=== PATIENT | male | born 2005 | race Caucasian/White ===

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

== ENCOUNTER 2024-01-10 18:49 | Emergency (ER) | payer MEDICAID ==
[~2024-01-10] VITALS: Ht 172.7 cm; Wt 72.7 kg
[~2024-01-10 18:49] MED LIST changes: +BACTRIM DS 8001 TAB PO; +CEPHALEXIN500 M1 PO
[2024-01-10 18:53] VITALS: TEMP 98.5
[2024-01-10] MEDS ORDERED: Tdap Vaccine 0.5 ML SYRINGE IM ONE (19:45)
[2024-01-10] MEDS ORDERED: BACTROBAN 22GM22 GM TP (19:46)
[2024-01-10 20:00] VITALS: BP 132/88; PULSE 65
== END 2024-01-10 20:00 | disposition home or self-care (01) ==
LOC: COL.ER 18:49
DX: T23.221A Burn of second degree of single right finger (nail) except thumb, initial encounter (principal); F17.200 Nicotine dependence, unspecified, uncomplicated; T31.0 Burns involving less than 10% of body surface; X19.XXXA Contact with other heat and hot substances, initial encounter

== ENCOUNTER 2024-01-14 15:47 | Emergency (ER) | payer MEDICAID ==
[~2024-01-14] VITALS: Ht 172.7 cm; Wt 72.7 kg
[~2024-01-14 15:47] MED LIST changes: +BACTROBAN 22GM22 GM TP
[2024-01-14 16:38] VITALS: BP 111/64; TEMP 98.3
[2024-01-14] MEDS ORDERED: CEPHALEXIN500 M1 PO (18:52)
[2024-01-14 19:03] VITALS: PULSE 70
== END 2024-01-14 19:04 | disposition home or self-care (01) ==
LOC: COL.ER 15:47
DX: L03.011 Cellulitis of right finger (principal)

== ENCOUNTER 2024-02-17 19:25 | Emergency (ER) | payer MEDICAID ==
[~2024-02-17] VITALS: Ht 175.3 cm; Wt 72.3 kg
[2024-02-17 19:27] VITALS: BP 142/80; PULSE 100; TEMP 98.3
[2024-02-17] MEDS ORDERED: NORCO 325 MG-51 TAB PO (19:43)
[2024-02-17] MEDS ORDERED: OMNICEF 300MG300 MG PO (19:43)
[2024-02-17] MEDS ORDERED: Home HYDROcodone/Acetaminophen 5/325 MG #4 TABS/PACK PO ONE (19:45)
[2024-02-17] MEDS ORDERED: Cefdinir 300 MG CAP PO ONE (19:45)
== END 2024-02-17 19:59 | disposition home or self-care (01) ==
LOC: COL.ER 19:25
DX: H66.92 Otitis media, unspecified, left ear (principal); Z88.0 Allergy status to penicillin